=== PATIENT | female | born 2000 | race Caucasian/White ===

== ENCOUNTER 2024-02-15 11:22 | Emergency (ER) | payer BC ==
[~2024-02-15] VITALS: Ht 162.6 cm; Wt 109.1 kg
[2024-02-15 12:02] LABS: URINE COLOR LIGHT YELLOW (YELLOW)
[2024-02-15 12:03] LABS: URINE APPEARANCE CLEAR (CLEAR); URINE BILIRUBIN NEGATIVE (NEGATIVE); URINE GLUCOSE NEGATIVE (NEGATIVE); URINE KETONE NEGATIVE (NEGATIVE); URINE NITRATE NEGATIVE (NEGATIVE); URINE PROTEIN(semi-quant) NEGATIVE (NEGATIVE)
[2024-02-15 12:04] LABS: URINE BLOOD 2+ (NEGATIVE); URINE LEUKOCYTE ESTERASE NEGATIVE (NEGATIVE); URINE WBC 0-1 /hpf (0-3)
[2024-02-15] MEDS ORDERED: Cephalexin 500 MG CAP PO ONE (12:15)
[2024-02-15 12:25] LABS: BASO # 0.02 K/mm3 (0.02-0.10); EOS # 0.11 K/mm3 (0.04-0.40); EOS % 1.5 % (1.0-5.0); HEMATOCRIT 42.3 % (37.0-47.0); HEMOGLOBIN 14.2 g/dL (12.5-16.0); MEAN CELL VOLUME 93 fl (78-100); MEAN CORPUSCULAR HEMOGLOBIN 31 pg (27-31); MEAN CORPUSCULAR HGB CONC 34 g/dL (33-37); MEAN PLATELET VOLUME 9.2 fl (7.4-10.4); MONO # 0.56 K/mm3 (0.20-0.80); NEU # 4.41 K/mm3 (1.40-6.50); PLATELET COUNT 249 K/mm3 (130-400); RED BLOOD COUNT 4.57 M/mm3 (4.10-5.30); RED CELL DISTRIBUTION WIDTH 11.3 % (11.5-14.5); WHITE BLOOD COUNT 7.3 K/mm3 (4.8-10.8)
[2024-02-15 12:34] LABS: ALBUMIN 4.3 g/dL (3.5-5.0)
[2024-02-15 12:36] LABS: CALCIUM 9.2 mg/dL (8.3-10.5)
[2024-02-15 12:37] LABS: TOTAL PROTEIN 7.1 g/dL (6.4-8.3)
[2024-02-15 12:39] LABS: TOTAL BILIRUBIN 0.5 mg/dL (0.2-1.2)
[2024-02-15] MEDS ORDERED: CEPHALEXIN500 M1 PO (13:25)
[2024-02-15 13:57] VITALS: BP 112/72
== END 2024-02-15 14:00 | disposition home or self-care (01) ==
LOC: ED 11:22
PROVIDERS: Family Medicine
DX: O20.9 Hemorrhage in early pregnancy, unspecified (principal); O23.40 Unspecified infection of urinary tract in pregnancy, unspecified trimester; O26.899 Other specified pregnancy related conditions, unspecified trimester; R74.01 Elevation of levels of liver transaminase levels; Z87.891 Personal history of nicotine dependence; Z3A.00 Weeks of gestation of pregnancy not specified